=== PATIENT | female | born 2000 | race Caucasian/White ===

== ENCOUNTER 2022-12-15 16:21 | Emergency (ER) | payer MEDICAID ==
[~2022-12-15] VITALS: Ht 157.5 cm; Wt 65.0 kg
[2022-12-15 16:25] VITALS: BP 120/53
[2022-12-15] MEDS ORDERED: IBUP-1986 PO (17:29)
[2022-12-15] MEDS ORDERED: ibuprofen tablet 400 MG TABLET PO ONE (17:30)
== END 2022-12-15 17:45 | disposition home or self-care (01) ==
LOC: ER 16:21
DX: M25.521 Pain in right elbow (principal); Z79.899 Other long term (current) drug therapy
CPT/HCPCS: 29125; 99283